=== PATIENT | female | born 1965 | race Caucasian/White ===

== ENCOUNTER 2021-05-08 19:42 | Emergency (ER) | payer OTHER ==
[~2021-05-08] VITALS: Ht 162.6 cm; Wt 70.3 kg
[2021-05-08] MEDS ORDERED: ONDANSETRON ODT4 MG PO (21:27)
[2021-05-08 21:39] VITALS: BP 127/85
== END 2021-05-08 21:40 | disposition home or self-care (01) ==
LOC: M.ERS 19:42
DX: U07.1 COVID-19 (principal)